=== PATIENT | male | born 1980 | race Hispanic/Latino ===

== ENCOUNTER 2018-11-02 15:14 | Emergency (ER) | payer MEDICARE, MEDICAID ==
[2018-11-02 16:40] LABS: Basophils # (Auto) 0.1 K/mm3 (0.0-0.1); Basophils % (Auto) 1.2 % (0.0-1.8); Eosinophils # (Auto) 0.1 K/mm3 (0.0-0.4); Eosinophils % (Auto) 2.8 % (0.0-4.3); Hematocrit 37.9 % (35.5-45.6); Hemoglobin 12.6 gm/dl (11.8-15.2); Lymphocytes # (Auto) 1.8 K/mm3 (1.2-5.4); Lymphocytes % (Auto) 37.6 % (13.4-35.0); Mean Corpuscular HGB Conc 33 % (32-34); Mean Corpuscular Volume 95 fl (84-94); Monocytes # (Auto) 0.5 K/mm3 (0.0-0.8); Monocytes % (Auto) 9.9 % (0.0-7.3); Platelet Count 317 K/mm3 (140-440); Red Blood Count 3.98 M/mm3 (3.65-5.03); Red Cell Distribution Width 15.1 % (13.2-15.2)
[2018-11-02 16:54] LABS: BUN/Creatinine Ratio 17; Blood Urea Nitrogen 12 mg/dL (9-20); Calcium 9.3 mg/dL (8.4-10.2); Hemolysis Index 9
[2018-11-02 16:57] LABS: Bilirubin,Urine NEG (Negative); Blood,Urine NEG (Negative); Color,Urine Yellow (Yellow); Mucus,Urine 1+ /HPF; Protein,Urine <15 mg/dL mg/dL (Negative); Urobilinogen,Urine < 2.0 mg/dL (<2.0)
[2018-11-02] MEDS ORDERED: VITAMIN B-1 100 MG, FOLVITE 1 MG, INFUVITE 10 ML in NACL 0.9% 1000 ML 1,000 ML IV ONE ×2 (16:58→19:12)
[2018-11-02] MEDS ORDERED: ATIVAN IV PRN (17:15)
[2018-11-02 17:16] LABS: Amphetamine Screen,Urine PRESUMPTIVE NEGATIVE; Cannabinoid Screen,Urine PRESUMPTIVE NEGATIVE; Cocaine Screen,Urine PRESUMPTIVE NEGATIVE; Methadone Screen,Urine PRESUMPTIVE NEGATIVE; Opiate Screen,Urine PRESUMPTIVE NEGATIVE
[2018-11-02 17:29] LABS: Benzodiazepines Screen,Urine PRESUMPTIVE POSITIVE
--- NOTE | 2018-11-02 17:57 | Emergency Department Report ---
ED General Adult HPI - General Chief complaint: Medical Clearance Stated complaint: DETOX Time Seen by Provider: 11/02/18 16:16 Source: patient Mode of arrival: Ambulatory Limitations: No Limitations - History of Present Illness Initial comments: This is a 37-year-old male nontoxic, well nourished in appearance, no acute signs of distress presents to the ED with c/o of detox program. Patient stated has a 10 year history of taking morphine opioids and benzodiazepines. Patient stated that he was seen several different ERs and was told to come here for [facility]. Patient is denies any suicidal or homicidal indications. Patient does state he has depression due to drug abuse. Patient denies any chest pains, fevers, chills, tremors, dizziness, syncope, abdominal pain, back pain, nausea vomiting. Patient denies any allergies. Patient's last dose of Xanax was this afternoon and last dose of morphine and Percocet was this morning around 2 AM. Severity scale (0 -10): 0 Improves with: none Worsens with: none Associated Symptoms: denies other symptoms. denies: confusion, chest pain, cough, diaphoresis, fever/chills, headaches, loss of appetite, malaise, nausea/vomiting, rash, seizure, shortness of breath, syncope, weakness - Related Data Allergies Allergy/AdvReac Type Severity Reaction Status Date / Time No Known Allergies Allergy Unverified 11/02/18 15:47 ED Review of Systems ROS: Stated complaint: DETOX Other details as noted in HPI Constitutional: denies: chills, fever Eyes: denies: eye pain, eye discharge, vision change ENT: denies: ear pain, throat pain Respiratory: denies: cough, shortness of breath, wheezing Cardiovascular: denies: chest pain, palpitations Endocrine: no symptoms reported Gastrointestinal: denies: abdominal pain, nausea, diarrhea Genitourinary: denies: urgency, dysuria Musculoskeletal: denies: back pain, joint swelling, arthralgia Skin: denies: rash, lesions Neurological: denies: headache, weakness, paresthesias Psychiatric: denies: anxiety, depression Hematological/Lymphatic: denies: easy bleeding, easy bruising ED Past Medical Hx - Past Medical History Previous Medical History?: Yes Additional medical history: ulcerative colitis - Surgical History Past Surgical History?: Yes Additional Surgical History: back surgery - Social History Smoking Status: Current Every Day Smoker Substance Use Type: Other ED Physical Exam - General Limitations: No Limitations General appearance: alert, in no apparent distress - Head Head exam: Present: atraumatic, normocephalic - Eye Eye exam: Present: normal appearance - ENT ENT exam: Present: normal exam - Neck Neck exam: Present: normal inspection, full ROM. Absent: tenderness, meningismus - Respiratory Respiratory exam: Present: normal lung sounds bilaterally. Absent: respiratory distress, wheezes, rales, rhonchi, stridor, chest wall tenderness, accessory muscle use, decreased breath sounds, prolonged expiratory - Cardiovascular Cardiovascular Exam: Present: regular rate, normal rhythm, normal heart sounds. Absent: irregular rhythm, systolic murmur, diastolic murmur, rubs, gallop - GI/Abdominal GI/Abdominal exam: Present: soft, normal bowel sounds. Absent: distended, tenderness, guarding, rebound, rigid, diminished bowel sounds - Rectal Rectal exam: Present: deferred - Extremities Exam Extremities exam: Present: normal inspection, full ROM - Back Exam Back exam: Present: normal inspection, full ROM - Neurological Exam Neurological exam: Present: alert, oriented X3 - Psychiatric Psychiatric exam: Present: normal affect, normal mood, anxious. Absent: agitated, flat affect, manic, homicidal ideation, suicidal ideation - Skin Skin exam: Present: warm, dry, intact, normal color. Absent: rash ED Course Vital Signs 11/02/18 11/02/18 11/02/18 15:41 17:30 19:26 Temperature 98.2 F 98.1 F Pulse Rate 91 H 83 Respiratory 16 16 Rate Blood Pressure 107/54 102/66 O2 Sat by Pulse 97 99 Oximetry - Reevaluation(s) Reevaluation #1: 11/02/18 17:58 Patient is speaking in full sentences with no signs of distress noted. - Consultations Consultation #1: 11/02/18 17:58 Patient has been consulted with Jose Chang ([facility]) about patient history, physical exam, and labs and stated patient can be admitted with hospitalist and will see patient tomorrow morning. Consultation #2: 11/02/18 17:59 Patient has been consulted with Dr. Moffett (hospitalist) about patient history, physical exam, and labs and accepts patient to services. Consultation #3: 11/02/18 19:[address] Moffett (hospitalist) request, the patient will be discharged from ED with this account and re-registered with registration for Detox and admitted with Dr. Moffett. ED Medical Decision Making - Lab Data Result diagrams: 11/02/18 16:25 11/02/18 16:25 - Medical Decision Making This is a 37-year-old male that presents with opioid addiction for detox. Patient is stable and was examined by me. Labs obtained. A urine and drug panel obtained. Patient was discussed with Nathan Chang from detox revision and after the patient should be admitted with hospitalist. Patient was discussed with hospitalist and accepts patient. Patient started on a banana bag. At time of admission, the patient does not seem toxic or ill in appearance. No acute signs of distress noted. Patient agrees to admission treatment plan of care. No further questions noted by the patient. Patient will be discharged from ED with this account and re-registered with registration for Detox and admitted with Dr. Moffett. Critical care attestation.: If time is entered above; I have spent that time in minutes in the direct care of this critically ill patient, excluding procedure time. ED Disposition Clinical Impression: Opioid abuse, Desire for detoxification Disposition: DC-01 TO HOME OR SELFCARE Is pt being admited?: Yes Does the pt Need Aspirin: No Condition: Stable Referrals: PRIMARY CARE, [Primary Care Provider] - 3-5 Days
[2018-11-02] MEDS ORDERED: ATIVAN IV ONE (19:00)
--- NOTE | 2018-11-02 19:08 | History and Physical Report ---
History of Present Illness History of present illness: This is a 37-year-old male nontoxic, well nourished in appearance, no acute signs of distress presents to the ED with c/o of detox program. Patient stated has a 10 year history of taking morphine opioids and benzodiazepines. Patient stated that he was seen several different ERs and was told to come here for [facility] program. Patient is denies any suicidal or homicidal indications. Patient does state he has depression due to drug abuse. Patient denies any chest pains, fevers, chills, tremors, dizziness, syncope, abdominal pain, back pain, nausea vomiting. Patient denies any allergies. Patient's last dose of Xanax was this afternoon and last dose of morphine and Percocet was this morning around 2 AM. Severity scale (0 -10): 0 Improves with: none Worsens with: none Associated Symptoms: denies other symptoms. denies: confusion, chest pain, cough, diaphoresis, fever/chills, headaches, loss of appetite, malaise, nausea/vomiting, rash, seizure, shortness of breath, syncope, weakness - Related Data Allergies Allergy/AdvReac Type Severity Reaction Status Date / Time No Known Allergies Allergy Unverified 11/02/18 15:47 ED Review of Systems ROS: Stated complaint: DETOX Other details as noted in HPI Constitutional: denies: chills, fever Eyes: denies: eye pain, eye discharge, vision change ENT: denies: ear pain, throat pain Respiratory: denies: cough, shortness of breath, wheezing Cardiovascular: denies: chest pain, palpitations Endocrine: no symptoms reported Gastrointestinal: denies: abdominal pain, nausea, diarrhea Genitourinary: denies: urgency, dysuria Musculoskeletal: denies: back pain, joint swelling, arthralgia Skin: denies: rash, lesions Neurological: denies: headache, weakness, paresthesias Psychiatric: denies: anxiety, depression Hematological/Lymphatic: denies: easy bleeding, easy bruising ED Past Medical Hx - Past Medical History Previous Medical History?: Yes Additional medical history: ulcerative colitis - Surgical History Past Surgical History?: Yes Additional Surgical History: back surgery - Social History Smoking Status: Current Every Day Smoker Substance Use Type: Other Medications and Allergies Allergies Allergy/AdvReac Type Severity Reaction Status Date / Time No Known Allergies Allergy Unverified 11/02/18 15:47 Active Meds: Active Medications Thiamine HCl 100 mg/ Folic Acid 1 mg/ Multivitamins/Minerals 10 ml/ Sodium Chloride 1,011.2 mls @ 250 mls/hr IV ONCE ONE Stop: 11/02/18 21:00 Last Admin: 11/02/18 18:35 Dose: 250 mls/hr Documented by: Exam - Constitutional Vitals: Temp Pulse Resp BP Pulse Ox 98.2 F 91 H 16 107/54 97 11/02/18 15:41 11/02/18 15:41 11/02/18 17:30 11/02/18 15:41 11/02/18 15:41 Results - Labs CBC & Chem 7: 11/02/18 16:25 11/02/18 16:25 Labs: Abnormal lab results 11/02/18 11/02/18 Range/Units 16:25 16:25 MCV 95 H (84-94) fl Lymph % (Auto) 37.6 H (13.4-35.0) % Eddy % (Auto) 9.9 H (0.0-7.3) % Creatinine 0.7 L (0.8-1.5) mg/dL
[2018-11-02] MEDS ORDERED: ZOFRAN IV PRN (19:09)
[2018-11-02 19:43] VITALS: BP 102/66
[2018-11-02] MEDS ORDERED: NACL 0.9% 1000 ML 1,000 ML IV SCH (20:00)
[2018-11-02] MEDS ORDERED: ATIVAN PO SCH (22:00)
[2018-11-03] MEDS ORDERED: THERAGRAN Tab PO SCH (10:00)
[2018-11-03] MEDS ORDERED: FOLVITE PO SCH (10:00)
[2018-11-03] MEDS ORDERED: VITAMIN B-1 PO SCH (10:00)
== END 2018-11-02 21:45 | disposition home or self-care (01) ==
LOC: ED 15:14 → UNDOADMIN 20:08 → MSU 20:08 → ED 21:45
DX: F11.10 Opioid abuse, uncomplicated (principal); F17.200 Nicotine dependence, unspecified, uncomplicated
CPT/HCPCS: 36415; 80048; 80307; 81001; 85025; 96365; 96366; 96375; 99283; G0480; J2060; J3411; J7030; 80320

== ENCOUNTER 2018-11-02 20:02 | Inpatient (IN) | payer MEDICARE, MEDICAID ==
[2018-11-02] MEDS ORDERED: CATAPRES PO PRN (20:06)
[2018-11-02] MEDS ORDERED: REQUIP PO PRN (20:06)
--- NOTE | 2018-11-02 20:06 | History and Physical Report ---
History of Present Illness Date of admission: 11/02/18 20:02 Chief complaint: I need help History of present illness: 37 YO Male with Opiate Dependence, Nicotine Dependence, Ulcerative Colitis, Chronic Pain presents for evaluation. Pt states that he has experienced abdominal cramping, diaphoresis, agitation, difficulty concentration, nausea, insomnia, restlessness, body aches, decreased oral intake over the past 8 hours. Pt seen and evaluated and found to have Opiate Withdrawl and admitted to [facility] for medical stabilization. Past History Past Medical History: other (Ulcerative colitis) Past Surgical History: appendectomy, bowel surgery, Other (Back surgery, ) Social history: single, smoking Family history: no significant family history (reviewed) Medications and Allergies Allergies Allergy/AdvReac Type Severity Reaction Status Date / Time No Known Allergies Allergy Unverified 11/02/18 15:47 Review of Systems Constitutional: no weight loss, no weight gain, no fever, no chills Ears, nose, mouth and throat: no ear pain, no ear discharge, no tinnitis, no decreased hearing, no nose pain, no nasal congestion Cardiovascular: no chest pain, no orthopnea, no palpitations, no rapid/irregular heart beat, no edema Respiratory: no cough, no cough with sputum, no hemoptysis, no shortness of breath Gastrointestinal: nausea, vomiting Genitourinary Male: no hematuria, no flank pain, no discharge, no urinary frequency, no urinary hesitancy Rectal: no pain, no incontinence, no bleeding Musculoskeletal: no neck stiffness, no neck pain, no shooting arm pain, no arm numbness/tingling, no shooting leg pain Integumentary: no rash, no pruritis, no redness, no sores, no wounds, no j aundice Neurological: no head injury, no transient paralysis, no paralysis, no weakness, no parathesias, no numbness, no tingling Psychiatric: anxiety, sleep disturbances, insomnia, change in appetite, hopelessness, difficulties concentrating, confusion, irritability, mood swings Endocrine: no cold intolerance, no heat intolerance, no polyphagia, no excessive thirst, no polydipsia Hematologic/Lymphatic: no easy bruising, no easy bleeding, no lymphadenopathy, no lymphedema Allergic/Immunologic: no urticaria, no persistent infections, no anaphylaxis Exam - Constitutional General appearance: Present: mild distress - EENT Eyes: Present: PERRL ENT: hearing intact, clear oral mucosa - Neck Neck: Present: supple, normal ROM - Respiratory Respiratory effort: normal Respiratory: bilateral: CTA - Cardiovascular Rhythm: other (tachycardia) Heart Sounds: Present: S1 & S2. Absent: rub, click - Extremities Extremities: pulses symmetrical, No edema Peripheral Pulses: within normal limits - Abdominal General gastrointestinal: Present: soft, non-tender, non-distended, normal bowel sounds Male genitourinary: Present: normal - Integumentary Integumentary: Present: clear, warm, dry - Musculoskeletal Musculoskeletal: gait normal, strength equal bilaterally - Psychiatric Psychiatric: appropriate mood/affect, intact judgment & insight - Neurologic Neurologic: CNII-XII intact, moves all extremities Assessment and Plan - Patient Problems (1) Opioid dependence with withdrawal Current Visit: Yes Status: Acute Plan to address problem: Suboxone protocol, IVF resuscitation therapy, anti emetic therapy, supportive care. (2) Nicotine dependence Current Visit: Yes Status: Acute Qualifiers: Nicotine product type: cigarettes Substance use status: in withdrawal Qualified Code(s): F17.213 - Nicotine dependence, cigarettes, with withdrawal Plan to address problem: Smoking cessation counseling, supportive care. (3) Ulcerative colitis Current Visit: Yes Status: Acute Qualifiers: Ulcerative colitis location: unspecified ulcerative colitis location Plan to address problem: Currently stable, steroid taper prn. (4) DVT prophylaxis Current Visit: Yes Status: Acute Plan to address problem: SCD to BLE while in bed.
[2018-11-02] MEDS ORDERED: TORADOL PO PRN (20:09)
[2018-11-02] MEDS: SUBUTEX SL SCH (22:00)
[2018-11-02] MEDS: LIBRIUM PO PRN (23:00)
[2018-11-03] MEDS: LIBRIUM PO PRN ×3 (08:36→22:53)
[2018-11-03] MEDS: ZOFRAN IV PRN ×3 (08:36→20:46)
[2018-11-03] MEDS: BENTYL PO PRN (08:36)
[2018-11-03] MEDS: SUBUTEX SL SCH ×2 (08:50→15:17)
[2018-11-03] MEDS: LYRICA PO SCH ×2 (14:24→20:40)
--- NOTE | 2018-11-03 14:40 | Progress Note ---
Assessment and Plan Assessment and plan: 37 YO Male with Opiate Dependence, Nicotine Dependence, Ulcerative Colitis, Chronic Pain presents for evaluation. Pt states that he has experienced abdominal cramping, diaphoresis, agitation, difficulty concentration, nausea, insomnia, restlessness, body aches, decreased oral intake over the past 8 hours. Pt seen and evaluated and found to have Opiate Withdrawl and admitted to [facility] for medical stabilization. - Patient Problems (1) Opioid dependence with withdrawal Current Visit: Yes Status: Acute Plan to address problem: Suboxone protocol, IVF resuscitation therapy, anti emetic therapy, supportive care Since her some additional increased Suboxone may give one 2 mg dose extra for better control. (2) Nicotine dependence Current Visit: Yes Status: Acute Qualifiers: Nicotine product type: cigarettes Substance use status: in withdrawal Qualified Code(s): F17.213 - Nicotine dependence, cigarettes, with withdrawal Plan to address problem: Smoking cessation counseling, supportive care. (3) Ulcerative colitis Current Visit: Yes Status: Acute Qualifiers: Ulcerative colitis location: unspecified ulcerative colitis location Plan to address problem: Currently stable, steroid taper prn. (4) DVT prophylaxis Current Visit: Yes Status: Acute Plan to address problem: SCD to BLE while in bed. History Interval history: Patient is seen today for: Inpatient detox Seen and examined at bedside; 24hour events reviewed; nursing staff ; no adverse overnight events reported to me; Denies any chest pain, vomiting, diarrhea. Patient still reports agitation. Nausea but no associated vomiting. No fever noted blood pressure controlled Hospitalist Physical - Physical exam Narrative exam: VITAL SIGNS: Reviewed. GENERAL: The patient appeared well nourished and normally developed. Vital signs as documented. HEAD: No signs of head trauma. EYES: Pupils are equal. Extraocular motions intact. EARS: Hearing grossly intact. MOUTH: Oropharynx is normal. NECK: No adenopathy, no JVD. CHEST: Chest with clear breath sounds bilaterally. No wheezes, rales, or rhonchi. CARDIAC: Regular rate and rhythm. S1 and S2, without murmurs, gallops, or ru bs. VASCULAR: No Edema. Peripheral pulses normal and equal in all extremities. ABDOMEN: Soft, without detectable tenderness. No sign of distention. No rebound or guarding, and no masses palpated. Bowel Sounds normal. MUSCULOSKELETAL: Good range of motion of all major joints. Extremities without clubbing, cyanosis or edema. NEUROLOGIC EXAM: Alert and oriented x 3. No focal sensory or strength deficits. Speech normal. Follows commands. PSYCHIATRIC: Mood with tremors. Diaphoretic appear anxious. SKIN: No rash or lesions. - Constitutional Vitals: Temp Pulse Resp BP Pulse Ox 97.7 F 63 20 109/64 99 11/03/18 12:17 11/03/18 12:17 11/03/18 12:17 11/03/18 12:28 11/03/18 12:17 General appearance: Present: mild distress
[2018-11-03] MEDS ORDERED: SUBUTEX SL ONE (14:43)
[2018-11-03] MEDS: VITAMIN C PO SCH (22:50)
[2018-11-04] MEDS: BENTYL PO PRN ×3 (02:13→17:40)
[2018-11-04] MEDS: ZOFRAN IV PRN ×3 (04:55→21:47)
[2018-11-04] MEDS: VITAMIN C PO SCH ×2 (09:44→21:30)
[2018-11-04] MEDS: LYRICA PO SCH ×3 (09:44→21:30)
[2018-11-04] MEDS: THERAGRAN-M Tab PO SCH (09:44)
[2018-11-04] MEDS: LIBRIUM PO PRN (09:44)
[2018-11-04] MEDS ORDERED: IRON FUM PO SCH (10:00)
[2018-11-04] MEDS ORDERED: MELATONIN PO SCH (10:00)
[2018-11-04] MEDS ORDERED: [UNRECOGNIZED DRUG - OTHER] PO SCH (10:00)
[2018-11-04] MEDS ORDERED: FOLIC AC PO SCH (10:00)
[2018-11-04] MEDS ORDERED: PYRIDOXINE HCL PO SCH (10:00)
[2018-11-04] MEDS ORDERED: MULTIVIT MIN PO SCH (10:00)
[2018-11-04] MEDS ORDERED: SUBUTEX SL ONE (11:46)
--- NOTE | 2018-11-04 17:52 | Progress Note ---
Assessment and Plan Assessment and plan: 37 YO Male with Opiate Dependence, Nicotine Dependence, Ulcerative Colitis, Chronic Pain presents for evaluation. Pt states that he has experienced abdominal cramping, diaphoresis, agitation, difficulty concentration, nausea, insomnia, restlessness, body aches, decreased oral intake over the past 8 hours. Pt seen and evaluated and found to have Opiate Withdrawl and admitted to [facility] for medical stabilization. - Patient Problems (1) Opioid dependence with withdrawal Current Visit: Yes Status: Acute Plan to address problem: Suboxone protocol, IVF resuscitation therapy, anti emetic therapy, supportive care Today plan for 4mg subtex. (2) Nicotine dependence Current Visit: Yes Status: Acute Qualifiers: Nicotine product type: cigarettes Substance use status: in withdrawal Qualified Code(s): F17.213 - Nicotine dependence, cigarettes, with withdrawal Plan to address problem: Smoking cessation counseling, supportive care. (3) Ulcerative colitis Current Visit: Yes Status: Acute Qualifiers: Ulcerative colitis location: unspecified ulcerative colitis location Plan to address problem: Currently stable, steroid taper prn. (4) DVT prophylaxis Current Visit: Yes Status: Acute Plan to address problem: SCD to BLE while in bed. Disposition. Patient is homeless but has been accepted into an inpatient detox program and will be discharged Wednesday morning to get enrolled History Interval history: Patient is seen today for: Inpatient detox Seen and examined at bedside; 24hour events reviewed; nursing staff ; no adverse overnight events reported to me; Denies any chest pain, vomiting, diarrhea. Patient still reports temor, less agitation today. Nausea but no associated vomiting. No fever noted blood pressure controlled Hospitalist Physical - Physical exam Narrative exam: VITAL SIGNS: Reviewed. GENERAL: The patient appeared well nourished and normally developed. Vital signs as documented. HEAD: No signs of head trauma. EYES: Pupils are equal. Extraocular motions intact. EARS: Hearing grossly intact. MOUTH: Oropharynx is normal. NECK: No adenopathy, no JVD. CHEST: Chest with clear breath sounds bilaterally. No wheezes, rales, or rhonchi. CARDIAC: Regular rate and rhythm. S1 and S2, without murmurs, gallops, or rubs. VASCULAR: No Edema. Peripheral pulses normal and equal in all extremities. ABDOMEN: Soft, without detectable tenderness. No sign of distention. No rebound or guarding, and no masses palpated. Bowel Sounds normal. MUSCULOSKELETAL: Good range of motion of all major joints. Extremities without clubbing, cyanosis or edema. NEUROLOGIC EXAM: Alert and oriented x 3. No focal sensory or strength deficits. Speech normal. Follows commands. PSYCHIATRIC: Mood with tremors. SKIN: No rash or lesions. - Constitutional Vitals: Temp Pulse Resp BP Pulse Ox 98.6 F 87 20 104/67 96 11/04/18 12:19 11/04/18 12:19 11/04/18 12:19 11/04/18 12:19 11/04/18 12:19 General appearance: Present: mild distress
[2018-11-04] MEDS ORDERED: SUBUTEX SL STA (23:45)
[2018-11-05] MEDS: BENTYL PO PRN ×2 (00:12→09:02)
[2018-11-05] MEDS: THERAGRAN-M Tab PO SCH (09:02)
[2018-11-05] MEDS: ZOFRAN IV PRN ×2 (09:02→19:36)
[2018-11-05] MEDS: VITAMIN C PO SCH ×2 (09:02→22:41)
[2018-11-05] MEDS: LYRICA PO SCH ×3 (09:02→19:35)
--- NOTE | 2018-11-05 13:05 | Progress Note ---
Assessment and Plan Assessment and plan: 37 YO Male with Opiate Dependence, Nicotine Dependence, Ulcerative Colitis, Chronic Pain presents for evaluation. Pt states that he has experienced abdominal cramping, diaphoresis, agitation, difficulty concentration, nausea, insomnia, restlessness, body aches, decreased oral intake over the past 8 hours. Pt seen and evaluated and found to have Opiate Withdrawl and admitted to [facility] for medical stabilization. - Patient Problems (1) Opioid dependence with withdrawal Current Visit: Yes Status: Acute Plan to address problem: Suboxone protocol, IVF resuscitation therapy, anti emetic therapy, supportive care Today plan for 2mg subtex. (2) Nicotine dependence Current Visit: Yes Status: Acute Qualifiers: Nicotine product type: cigarettes Substance use status: in withdrawal Qualified Code(s): F17.213 - Nicotine dependence, cigarettes, with withdrawal Plan to address problem: Smoking cessation counseling, supportive care. (3) Ulcerative colitis Current Visit: Yes Status: Acute Qualifiers: Ulcerative colitis location: unspecified ulcerative colitis location Plan to address problem: Currently stable, steroid taper prn. (4) DVT prophylaxis Current Visit: Yes Status: Acute Plan to address problem: SCD to BLE while in bed. Disposition. Patient is homeless but has been accepted into an inpatient detox program and will be discharged Wednesday morning to get enrolled History Interval history: Patient is seen today for: Inpatient detox Seen and examined at bedside; 24hour events reviewed; nursing staff ; no adverse overnight events reported to me; Denies any chest pain, vomiting, diarrhea. Patient still reports temor, less agitation today. No further Nausea or associated vomiting. No fever noted blood pressure controlled Hospitalist Physical - Physical exam Narrative exam: VITAL SIGNS: Reviewed. GENERAL: The patient appeared well nourished and normally developed. Vital signs as documented. HEAD: No signs of head trauma. EYES: Pupils are equal. Extraocular motions intact. EARS: Hearing grossly intact. MOUTH: Oropharynx is normal. NECK: No adenopathy, no JVD. CHEST: Chest with clear breath sounds bilaterally. No wheezes, rales, or rho nchi. CARDIAC: Regular rate and rhythm. S1 and S2, without murmurs, gallops, or rubs. VASCULAR: No Edema. Peripheral pulses normal and equal in all extremities. ABDOMEN: Soft, without detectable tenderness. No sign of distention. No rebound or guarding, and no masses palpated. Bowel Sounds normal. MUSCULOSKELETAL: Good range of motion of all major joints. Extremities without clubbing, cyanosis or edema. NEUROLOGIC EXAM: Alert and oriented x 3. No focal sensory or strength deficits. Speech normal. Follows commands. PSYCHIATRIC: Mood with tremors. SKIN: No rash or lesions. - Constitutional Vitals: Temp Pulse Resp BP Pulse Ox 98.1 F 66 16 94/64 99 11/05/18 08:05 11/05/18 10:00 11/05/18 10:00 11/05/18 08:05 11/05/18 10:00 General appearance: Present: mild distress
[2018-11-05] MEDS ORDERED: SUBUTEX SL ONE (13:06)
[2018-11-06] MEDS: LYRICA PO SCH (08:05)
[2018-11-06] MEDS: THERAGRAN-M Tab PO SCH (09:00)
[2018-11-06] MEDS: VITAMIN C PO SCH (09:00)
--- NOTE | 2018-11-06 10:46 | Progress Note ---
Assessment and Plan Assessment and plan: 37 YO Male with Opiate Dependence, Nicotine Dependence, Ulcerative Colitis, Chronic Pain presents for evaluation. Pt states that he has experienced abdominal cramping, diaphoresis, agitation, difficulty concentration, nausea, insomnia, restlessness, body aches, decreased oral intake over the past 8 hours. Pt seen and evaluated and found to have Opiate Withdrawl and admitted to [facility] for medical stabilization. - Patient Problems (1) Opioid dependence with withdrawal Current Visit: Yes Status: Acute Plan to address problem: Suboxone protocol, IVF resuscitation therapy, anti emetic therapy, supportive care Today plan for 2mg subtex. Discharge in am patient to enroll in an inpatient program (2) Nicotine dependence Current Visit: Yes Status: Acute Qualifiers: Nicotine product type: cigarettes Substance use status: in withdrawal Qualified Code(s): F17.213 - Nicotine dependence, cigarettes, with withdrawal Plan to address problem: Smoking cessation counseling, supportive care. (3) Ulcerative colitis Current Visit: Yes Status: Acute Qualifiers: Ulcerative colitis location: unspecified ulcerative colitis location Plan to address problem: Currently stable, steroid taper prn. (4) DVT prophylaxis Current Visit: Yes Status: Acute Plan to address problem: SCD to BLE while in bed. Disposition. Patient is homeless but has been accepted into an inpatient detox program and will be discharged Wednesday to get enrolled History Interval history: Patient is seen today for: Inpatient detox Seen and examined at bedside; 24hour events reviewed; nursing staff ; no adverse overnight events reported to me; Denies any chest pain, vomiting, diarrhea. Patient no temor, less agitation today. No further Nausea or associated vomiting. No fever noted blood pressure controlled Hospitalist Physical - Physical exam Narrative exam: VITAL SIGNS: Reviewed. GENERAL: The patient appeared well nourished and normally developed. Vital signs as documented. HEAD: No signs of head trauma. EYES: Pupils are equal. Extraocular motions intact. EARS: Hearing grossly intact. MOUTH: Oropharynx is normal. NECK: No adenopathy, no JVD. CHEST: Chest with clear breath sounds bilaterally. No wheezes, rales, or rhonchi. CARDIAC: Regular rate and rhythm. S1 and S2, without murmurs, gallops, or rubs. VASCULAR: No Edema. Peripheral pulses normal and equal in all extremities. ABDOMEN: Soft, without detectable tenderness. No sign of distention. No rebound or guarding, and no masses palpated. Bowel Sounds normal. MUSCULOSKELETAL: Good range of motion of all major joints. Extremities without clubbing, cyanosis or edema. NEUROLOGIC EXAM: Alert and oriented x 3. No focal sensory or strength deficits. Speech normal. Follows commands. PSYCHIATRIC: Mood normal. SKIN: No rash or lesions. - Constitutional Vitals: Temp Pulse Resp BP Pulse Ox 98.2 F 68 18 103/60 98 11/06/18 08:05 11/06/18 08:45 11/06/18 08:45 11/06/18 08:05 11/06/18 08:45 General appearance: Present: mild distress
[2018-11-06] MEDS ORDERED: SUBUTEX SL ONE (11:00)
[2018-11-06 12:58] VITALS: BP 111/76
--- NOTE | 2018-11-06 15:29 | Discharge Summary ---
Providers - Providers Date of Admission: 11/02/18 20:08 Attending physician: ATILIO CHOU MD Primary care physician: [employer] Hospitalization Reason for admission: susbstance dependance Condition: Fair Hospital course: 37 YO Male with Opiate Dependence, Nicotine Dependence, Ulcerative Colitis, Chronic Pain presents for evaluation. Pt states that he has experienced abdominal cramping, diaphoresis, agitation, difficulty concentration, nausea, insomnia, restlessness, body aches, decreased oral intake over the past 8 hours. Pt seen and evaluated and found to have Opiate Withdrawl and admitted to [facility] for medical stabilization. - Patient Problems (1) Opioid dependence with withdrawal Current Visit: Yes Status: Acute Plan to address problem: Suboxone protocol, IVF resuscitation therapy, anti emetic therapy, supportive care Today plan for 2mg subtex. Discharge in am patient to enroll in an inpatient program (2) Nicotine dependence Current Visit: Yes Status: Acute Qualifiers: Nicotine product type: cigarettes Substance use status: in withdrawal Qualified Code(s): F17.213 - Nicotine dependence, cigarettes, with withdrawal Plan to address problem: Smoking cessation counseling, supportive care. (3) Ulcerative colitis Current Visit: Yes Status: Acute Qualifiers: Ulcerative colitis location: unspecified ulcerative colitis location Plan to address problem: Currently stable, steroid taper prn. (4) DVT prophylaxis Current Visit: Yes Status: Acute Plan to address problem: SCD to BLE while in bed. Disposition. Patient is homeless but has been accepted into an inpatient detox program and will be discharged Wednesday to get enrolled Patient kept leaving the hospital and signing ama, Was advised of the consequence and the lack of ability to verify what he goes out to do for hours prior to returning. Subtex held for today. Patient signed out AMA again. Disposition: - LEFT AGAINST MED ADVICE Time spent for discharge: 45 mins Core Measure Documentation - Palliative Care Palliative Care/ Comfort Measures: Not Applicable - Core Measures Any of the following diagnoses?: none Exam - Physical Exam Narrative exam: VITAL SIGNS: Reviewed. GENERAL: The patient appeared well nourished and normally developed. Vital signs as documented. HEAD: No signs of head trauma. EYES: Pupils are equal. Extraocular motions intact. EARS: Hearing grossly intact. MOUTH: Oropharynx is normal. NECK: No adenopathy, no JVD. CHEST: Chest with clear breath sounds bilaterally. No wheezes, rales, or rhonchi. CARDIAC: Regular rate and rhythm. S1 and S2, without murmurs, gallops, or rubs. VASCULAR: No Edema. Peripheral pulses normal and equal in all extremities. ABDOMEN: Soft, without detectable tenderness. No sign of distention. No rebound or guarding, and no masses palpated. Bowel Sounds normal. MUSCULOSKELETAL: Good range of motion of all major joints. Extremities without clubbing, cyanosis or edema. NEUROLOGIC EXAM: Alert and oriented x 3. No focal sensory or strength deficits. Speech normal. Follows commands. PSYCHIATRIC: Mood normal. SKIN: No rash or lesions. - Constitutional Vitals: Temp Pulse Resp BP Pulse Ox 98.4 F 77 18 111/76 99 11/06/18 12:38 11/06/18 12:38 11/06/18 12:38 11/06/18 12:38 11/06/18 12:38 Plan Follow up with: PRIMARY MD MARY ELLEN [Primary Care Provider] - 7 Days
--- NOTE | 2018-11-11 15:33 | Query-Altered Level of Consc. ---
Cesar Joshua___Alex Date:___11/11/18 [employer]/CD[employer]:_[email or web address] Phone#:___[phone] Exercise your independent professional judgment when responding to this query. Questions asked do not imply a particular answer is desired or expected. We greatly appreciate your clarification on this issue. Clinical Documentation States: 37 YO Male with Opiate Dependence, Nicotine Dependence, Ulcerative Colitis, Chronic Pain presents for evaluation. Pt states that he has experienced abdominal cramping, diaphoresis, agitation, difficulty concentration, nausea, insomnia, restlessness, body aches, decreased oral intake over the past 8 hours. Pt seen and evaluated and found to have Opiate Withdrawl and admitted to [facility] for medical stabilization. Review of Systems: difficulties concentrating, confusion, irritability, mood swings Patient Problems (1) Opioid dependence with withdrawal (2) Nicotine dependence Clinical Findings Show: Please provide an appropriate diagnosis clarifying the Etiology and Acuity of this clinical scenario: [ ] Metabolic Encephalopathy [x ] Toxic Encephalopathy [ ] Toxic - Metabolic Encephalopathy [ ] Septic Encephalopathy with Sepsis [ ] Septic Encephalopathy without Sepsis [ ] Acute Hepatic Encephalopathy [ ] Subacute Hepatic Encephalopathy [ ] Other: [ ] Unable To Determine [ ]Comment/Explanation: Present on Admission: [x ] Yes (Y) [ ] Clinically undeterminable (W) [ ] No (N) Please also document response in your Progress Notes and/or Discharge Summary and indicate if the condition was present on admission. MTDD
== END 2018-11-06 12:50 | disposition left against medical advice (07) | DRG 385 ==
LOC: UNDOADMIN 20:02 → 3A 20:02 → MSU 20:08
PROVIDERS: ADMIT Internal Medicine; ATTEND Internal Medicine
DX: K51.90 Ulcerative colitis, unspecified, without complications (principal); G92 Toxic encephalopathy; F11.23 Opioid dependence with withdrawal; F17.213 Nicotine dependence, cigarettes, with withdrawal; Z59.0 Homelessness; Z53.21 Procedure and treatment not carried out due to patient leaving prior to being seen by health care provider; G89.29 Other chronic pain
CPT/HCPCS: 36415; 80048; 80307; 80320; 81001; 85025; 96365; 96366; 96375; 99283; G0378; G0480; J2060; J2405; J3411; J7030